=== PATIENT | female | born 1980 ===

== ENCOUNTER 2024-09-11 18:22 | Observation (INO) | payer OTHER ==
[~2024-09-11] VITALS: Ht 170.2 cm; Wt 128.8 kg
[2024-09-11 20:56] LABS: BASOPHILS ABSOLUTE AUTO 0.03 K/mm3 (0.00-0.23); BASOPHILS PERCENT AUTO 0 % (0-2); EOSINOPHILS ABSOLUTE AUTO 0.03 K/mm3 (0.00-0.68); EOSINOPHILS PERCENT AUTO 0 % (0-6); Hemoglobin 16.2 g/dL (11.5-16.0); IMMATURE GRAN ABSOLUTE AUTO 0.02 K/mm3 (0.00-0.10); IMMATURE GRAN PERCENT AUTO 0 % (0-1); LYMPHOCYTES ABSOLUTE AUTO 0.82 K/mm3 (0.84-5.20); LYMPHOCYTES PERCENT AUTO 9 % (21-46); MONOCYTES PERCENT AUTO 6 % (4-13); Mean Corpuscular HGB Conc 33.1 g/dL (31.5-36.5); Mean Corpuscular Volume 94 fL (80-100); Mean Platelet Volume 11.6 fL (9.1-12.4); NEUTROPHILS ABSOLUTE AUTO 7.38 K/mm3 (1.96-9.15); NEUTROPHILS PERCENT AUTO 84 % (41-73); Platelet Count 286 K/mm3 (150-400); RDW Coefficient Variation 12.6 % (11.7-14.2); RDW Standard Deviation 43.4 fL (35.1-46.3); Red Blood Cell Count 5.23 M/mm3 (3.80-5.20); White Blood Cell Count 8.78 K/mm3 (4.00-11.30)
[2024-09-11 21:27] LABS: Alanine Aminotransfer (ALT/SGP 742 U/L (12-78); Albumin, Blood 3.8 g/dL (3.4-5.0); Albumin/Globulin Ratio 0.9 (0.8-1.8); Alk Phos 44 U/L (50-136); Anion Gap 13 mmol/L (3-11); Aspartate Aminotrans (AST/SGOT 735 U/L (12-37); Beta HCG, Quantitative, Serum <1 mIU/mL (0-3); Bilirubin, Total 3.9 mg/dL (0.1-1.0); Blood Urea Nitrogen 13 mg/dL (8-24); Bun/Creatinine Ratio 18.6 (12.0-20.0); CO2, Blood 23 mmol/L (21-32); Calcium, Blood 9.4 mg/dL (8.5-10.1); Chloride, Blood 106 mmol/L (98-108); Globulin, Blood 4.1 g/dL (2.2-4.0); Glomerular Filtration Rate 110 (60-); Glucose, Blood 111 mg/dL (70-99); Potassium, Blood 4.5 mmol/L (3.5-5.5); Sodium, Blood 137 mmol/L (136-145); Total Protein, Blood 7.9 g/dL (6.4-8.2)
[2024-09-11] MEDS ORDERED: Neurontin 300300 MG PO (21:57)
[2024-09-11] MEDS ORDERED: MELO7.5 PO (21:57)
[2024-09-11] MEDS ORDERED: Morphine Sulfate 4 MG/1 ML Injection IV ONE (22:55)
[2024-09-11] MEDS ORDERED: Ondansetron HCl 2 MG / ML 2ML Vial IV ONE (22:55)
[2024-09-11] MEDS ORDERED: Ketorolac Tromethamine 15mg Vial IV ONE (22:55)
[2024-09-12] MEDS ORDERED: Morphine Sulfate 4 MG/1 ML Injection IV PRN (01:25)
[2024-09-12] MEDS ORDERED: Ondansetron HCl 2 MG / ML 2ML Vial IV PRN (01:25)
[2024-09-12] MEDS ORDERED: Naloxone HCl 0.4MG / ML 1ML Vial IV PRN (01:25)
[2024-09-12] MEDS ORDERED: FLU VACC TS2024-25(6MOS UP)/PF 45 MCG/0.5 ML SYRINGE IM ONE (01:25)
[2024-09-12] MEDS ORDERED: Acetaminophen 325 MG TABLET PO PRN (01:30)
[2024-09-12] MEDS ORDERED: Ketorolac Tromethamine 15mg Vial IV PRN (01:40)
[2024-09-12] MEDS ORDERED: Lactated Ringer's 1,000 ML IV SCH (02:00)
[2024-09-12 05:13] LABS: BASOPHILS ABSOLUTE AUTO 0.02 K/mm3 (0.00-0.23); BASOPHILS PERCENT AUTO 0 % (0-2); EOSINOPHILS PERCENT AUTO 1 % (0-6); Hematocrit 43.6 % (33.0-51.0); Hemoglobin 14.2 g/dL (11.5-16.0); IMMATURE GRAN ABSOLUTE AUTO 0.02 K/mm3 (0.00-0.10); IMMATURE GRAN PERCENT AUTO 0 % (0-1); LYMPHOCYTES ABSOLUTE AUTO 0.85 K/mm3 (0.84-5.20); LYMPHOCYTES PERCENT AUTO 12 % (21-46); MONOCYTES ABSOLUTE AUTO 0.51 K/mm3 (0.16-1.47); MONOCYTES PERCENT AUTO 7 % (4-13); Mean Corpuscular HGB 30.5 pg (26.0-34.0); Mean Corpuscular HGB Conc 32.6 g/dL (31.5-36.5); Mean Corpuscular Volume 94 fL (80-100); NEUTROPHILS PERCENT AUTO 79 % (41-73); Platelet Count 234 K/mm3 (150-400); RDW Coefficient Variation 12.7 % (11.7-14.2); RDW Standard Deviation 43.9 fL (35.1-46.3); Red Blood Cell Count 4.65 M/mm3 (3.80-5.20)
[2024-09-12 05:27] LABS: International Normalized Ratio 1.03
[2024-09-12 05:39] LABS: Albumin, Blood 3.3 g/dL (3.4-5.0); Bilirubin, Total 4.3 mg/dL (0.1-1.0); Bun/Creatinine Ratio 13.8 (12.0-20.0); Creatinine, Blood 0.8 mg/dL (0.40-1.00); Globulin, Blood 3.4 g/dL (2.2-4.0); Potassium, Blood 3.8 mmol/L (3.5-5.5); Total Protein, Blood 6.7 g/dL (6.4-8.2)
[2024-09-12 08:03] VITALS: BP 138/69
--- NOTE | 2024-09-12 14:00 | NUR ---
MRI PER IMAGING DEPARTMENT ON CAMPUS MRI MACHINE IS OUT OF SERVICE AT THIS TIME AND PT WOULD BENEFIT FROM [facility]GER MRI MACHINE FOR COMFORT. SPOKE WITH CHU ALCALA RN AND CHICHO RN ABOUT TRANSPORTING PT TO [facility]. DISCUSSED WITH JANELLE HUERTA (NURSING VACUUM TECHNICIAN); PER JANELLE OK TO TRANSPORT PT LONG SHE IS STABLE. DR. JUAN REPORTED PT NEEDS MRI AND IF UNABLE WILL NEED TRANSFERRED TO ANOTHER HOSPITAL THAT CAN ACCOMODATE. DR. RENEA BERNARDO NOTIFIED OF PLAN FOR PATIENT TO TRANSFER TO [facility] FOR IMAGING; PER DR. RENEA BERNARDO THIS IS OK AND IT IS OK FOR TELE TO BE REMOVED FOR TRANSPORT. THIS RN ARRANGED WITH [facility] FOR TRANSPORT TO [facility] FOR MRI AT 1230. THIS RN ALSO REQUESTED THAT THE TRANSPORTER REMAIN WITH THE PATIENT. TRANSPORT ARRIVED AT 1355, THIS RN VERIFIED THAT TRANSPORTER WOULD REMAIN AT THE IMAGING DEPARTMENT WHILE PT WAS THERE. HE STATED THAT HE UNDERSTOOD THE REQUEST AND WOULD VERIFY. PT LEFT JUST AFTER 1355.
--- NOTE | 2024-09-12 15:26 | NUR ---
MRI/TRANSPORT THIS RN NOTIFIED AT APPROXIMATELY 1500 THAT JAM'S MRI WAS COMPLETED BUT SHE NEEDED TRANSPORT BACK TO THE HOSPITAL. THIS RN SPOKE WITH STAFF AT [facility] WHO INFORMED THIS RN THAT TRANSPORT WOULD ARRIVE SOON TO BRING HER BACK TO THE HOSPITAL BUT THAT THERE WAS A "MISUNDERSTANDING" BETWEEN TRANSPORT AND DISPATCH AND THAT IS WHY TRANSPORT DID NOT REMAIN WITH THE PATIENT AT [facility]. RYANN FROM IMAGING NOTIFIED THAT [facility] WAS NOTIFIED OF NEED FOR TRANSPORT AND THAT THEY WOULD BE ARRIVING SHORTLY TO DAIRY HELPER THE PATIENT, SHE STATED SHE WOULD COMMUNITCATE THIS WITH [facility].
[2024-09-12 15:56] VITALS: BP 119/73
[2024-09-12 19:14] VITALS: BP 117/72
--- NOTE | 2024-09-12 19:59 | NUR ---
SHIFT SUMMARY PAIN HAS BEEN MANAGED WITH MORPHINE AND TORADOL. PT IS INDEPENDENT IN THE ROOM AND CALLS APPROPRIATELY. PT TOLERATING SMALL AMOUNT OF CLEAR LIQUIDS AND WILL BE NPO AT MIDNIGHT FOR SURGERY TOMORROW. BEDSIDE REPORT GIVEN TO AYDEN GODINEZ.
[2024-09-12] MEDS ORDERED: CefOXitin Sodium 2,000 MG in NS 50 ML IV SCH (21:55)
[2024-09-13] VITALS (16 sets, daily range): BP systolic 108–152; BP diastolic 65–90
[2024-09-13 04:42] LABS: BASOPHILS ABSOLUTE AUTO 0.03 K/mm3 (0.00-0.23); BASOPHILS PERCENT AUTO 0 % (0-2); EOSINOPHILS PERCENT AUTO 3 % (0-6); Hemoglobin 13.5 g/dL (11.5-16.0); IMMATURE GRAN ABSOLUTE AUTO 0.01 K/mm3 (0.00-0.10); IMMATURE GRAN PERCENT AUTO 0 % (0-1); LYMPHOCYTES ABSOLUTE AUTO 1.24 K/mm3 (0.84-5.20); LYMPHOCYTES PERCENT AUTO 18 % (21-46); MONOCYTES ABSOLUTE AUTO 0.52 K/mm3 (0.16-1.47); MONOCYTES PERCENT AUTO 8 % (4-13); Mean Corpuscular HGB 30.9 pg (26.0-34.0); Mean Corpuscular HGB Conc 32.9 g/dL (31.5-36.5); Mean Corpuscular Volume 94 fL (80-100); Mean Platelet Volume 11.4 fL (9.1-12.4); NEUTROPHILS ABSOLUTE AUTO 4.88 K/mm3 (1.96-9.15); NEUTROPHILS PERCENT AUTO 71 % (41-73); Platelet Count 236 K/mm3 (150-400); RDW Coefficient Variation 12.9 % (11.7-14.2); RDW Standard Deviation 44.3 fL (35.1-46.3); Red Blood Cell Count 4.37 M/mm3 (3.80-5.20); White Blood Cell Count 6.88 K/mm3 (4.00-11.30)
[2024-09-13 05:05] LABS: Albumin/Globulin Ratio 0.9 (0.8-1.8); Bilirubin, Total 2.1 mg/dL (0.1-1.0); Bun/Creatinine Ratio 26.4 (12.0-20.0); Calcium, Blood 8.6 mg/dL (8.5-10.1); Creatinine, Blood 0.72 mg/dL (0.40-1.00); Globulin, Blood 3.3 g/dL (2.2-4.0); Potassium, Blood 3.5 mmol/L (3.5-5.5); Total Protein, Blood 6.3 g/dL (6.4-8.2)
--- NOTE | 2024-09-13 06:37 | NUR ---
PT VSS TO NIGHT. PT REP ABD PAIN MILD-TOLERABLE, DENIED N/V. PT MED FOR SHRESTHA PER EMAR W/REP RELIEF. PT NPO POST MIDNIGHT FOR PLAN FOR SURGERY THIS AM.
[2024-09-13] MEDS ORDERED: Indocyanine Green 25 MG Vial IV ONE (08:00)
[2024-09-13] MEDS ORDERED: Lactated Ringer's 1,000 ML IV SCH (09:20)
[2024-09-13] MEDS ORDERED: FentaNYL Citrate 50 MCG/ML 2 ML Injection ONE (10:51)
[2024-09-13] MEDS ORDERED: propofoL 20 ML IV ONE (10:51)
[2024-09-13] MEDS ORDERED: Rocuronium Bromide 10 MG/ML 5ML Injection IV ONE (10:51)
[2024-09-13] MEDS ORDERED: Midazolam HCl 1MG / ML 2ML Vial ONE (10:51)
[2024-09-13] MEDS ORDERED: Bupivacaine 0.5% HCl 5 MG/ML 30MLVIAL ONE (11:12)
--- NOTE | 2024-09-13 11:21 | NUR ---
History, Chart, Medications and Allergies reviewed before start of procedure. Pre-Op teaching done. Pt verbalizes understanding. Patient confirms NPO status and agrees with scheduled surgery. PT REQUESTS TO LEAVE CONTACTS IN DURING PROCEDURE. 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 ALL PT BELONGINGS LEFT IN SURG FLOOR RM.
[2024-09-13] MEDS ORDERED: Ketorolac Tromethamine 30mg Vial ONE (11:42)
[2024-09-13] MEDS ORDERED: Dexamethasone Sod Phos 10 MG/ML 1ML VIAL ONE (11:43)
[2024-09-13] MEDS ORDERED: Ondansetron HCl 2 MG / ML 2ML Vial ONE (11:43)
[2024-09-13] MEDS ORDERED: CefOXitin Sodium 2,000 MG in NS 50 ML IV ONE (11:50)
[2024-09-13] MEDS ORDERED: Sugammadex Sodium 200 MG/2ML SDV (100 MG/ML) ONE (12:33)
[2024-09-13] MEDS ORDERED: HYDROmorphone HCl/Pf 1MG SYR ONE ×2 (13:04→13:18)
[2024-09-13] MEDS ORDERED: OxyCODONE HCL 5 MG TAB PO PRN (13:55)
--- NOTE | 2024-09-13 15:29 | NUR ---
SHIFT SUMMARY PT IS POD#0 FROM [facility] WITH DR. JUAN. PT HAS BEEN SLEEPING POST-OP BUT WAKES WHEN SPOKEN TO. PT CALLS APPROPRIATELY. FAMILY IS AT THE BEDSIDE FOR SUPPORT. VSS.
--- NOTE | 2024-09-13 16:01 | NUR ---
ASSUMED CARE OF PT FROM PAM Laboy RN. PT RESTING IN BED, CALL LIGHT IN REACH. DENIES ANY NEEDS AT THIS TIME.
--- NOTE | 2024-09-13 17:07 | NUR ---
SUMMARY NO ACUTE CHANGES SINCE ASSUMING CARE OF PT FROM PAM Laboy RN. MEDICATED PT PER ORDERS W/TYLENOL. PT TAKING CRACKERS AND SIPPING WATER. CALL LIGHT IN REACH.
[2024-09-13] MEDS ORDERED: CefOXitin Sodium 2,000 MG in NS 50 ML IV SCH (17:30)
[2024-09-14 04:32] VITALS: BP 117/65
--- NOTE | 2024-09-14 04:34 | NUR ---
SHIFT SUMMARY PATIENT SLEPT IN LONG INTERVALS, MEDICATED TWICE FOR PAIN AND NAUSEA. NO EMESIS, VOIDING AND MOVES WELL IN THE ROOM.
[2024-09-14 05:08] LABS: BASOPHILS PERCENT AUTO 0 % (0-2); EOSINOPHILS ABSOLUTE AUTO 0.02 K/mm3 (0.00-0.68); EOSINOPHILS PERCENT AUTO 0 % (0-6); Hematocrit 40.8 % (33.0-51.0); Hemoglobin 13.2 g/dL (11.5-16.0); IMMATURE GRAN ABSOLUTE AUTO 0.02 K/mm3 (0.00-0.10); IMMATURE GRAN PERCENT AUTO 0 % (0-1); LYMPHOCYTES PERCENT AUTO 14 % (21-46); MONOCYTES ABSOLUTE AUTO 0.57 K/mm3 (0.16-1.47); MONOCYTES PERCENT AUTO 6 % (4-13); Mean Corpuscular HGB 30.3 pg (26.0-34.0); Mean Corpuscular HGB Conc 32.4 g/dL (31.5-36.5); Mean Corpuscular Volume 94 fL (80-100); Mean Platelet Volume 11.6 fL (9.1-12.4); NEUTROPHILS ABSOLUTE AUTO 7.71 K/mm3 (1.96-9.15); NEUTROPHILS PERCENT AUTO 80 % (41-73); Platelet Count 246 K/mm3 (150-400); RDW Coefficient Variation 12.5 % (11.7-14.2); RDW Standard Deviation 43.5 fL (35.1-46.3); Red Blood Cell Count 4.36 M/mm3 (3.80-5.20); White Blood Cell Count 9.62 K/mm3 (4.00-11.30)
[2024-09-14 05:41] LABS: Albumin, Blood 3.1 g/dL (3.4-5.0); Bilirubin, Total 1.2 mg/dL (0.1-1.0); Bun/Creatinine Ratio 29.9 (12.0-20.0); Creatinine, Blood 0.7 mg/dL (0.40-1.00); Globulin, Blood 3.2 g/dL (2.2-4.0); Potassium, Blood 3.8 mmol/L (3.5-5.5); Total Protein, Blood 6.3 g/dL (6.4-8.2)
[2024-09-14 07:18] VITALS: BP 105/62
--- NOTE | 2024-09-14 10:57 | NUR ---
DISCHARGE: PACKET PRINTED AND PT EDUCATED. SCRIPT SENT TO FLIP. PT LEFT UNIT AT 1030 VIA WHEELCHAIR WITH YOLANDA
== END 2024-09-14 10:30 | disposition home or self-care (01) ==
LOC: ER 18:22 → ERHOLD 18:23 → SURS 18:23
PROVIDERS: Student in an Organized Health Care Education/Training Program; Surgery; ADMIT Student in an Organized Health Care Education/Training Program
PROC: 0FT44ZZ Resection of Gallbladder, Percutaneous Endoscopic Approach (ICD-10-PCS; principal; 2024-09-13 12:00)
PROC: 8E0W4CZ Robotic Assisted Procedure of Trunk Region, Percutaneous Endoscopic Approach (ICD-10-PCS; principal; 2024-09-13 12:00)
DX: K80.20 Calculus of gallbladder without cholecystitis without obstruction (principal); E80.6 Other disorders of bilirubin metabolism; K76.0 Fatty (change of) liver, not elsewhere classified; E66.813 Obesity, class 3; K66.0 Peritoneal adhesions (postprocedural) (postinfection); Z68.41 Body mass index [BMI] 40.0-44.9, adult; Z79.899 Other long term (current) drug therapy
CPT/HCPCS: 36415; 74177; 74181; 76705; 80053; 82248; 83690; 83735; 84702; 85025; 85610; 88304; 94760; 96361; 96365; 96366; 96374-59; 96375; 96376; 99285-25; A9270; G0378; J0694; J1100; J1171; J1885; J2250; J2270; J2405; J2704; J3010; J7120; Q9967